=== PATIENT | female | born 1990 | race Caucasian/White ===

== ENCOUNTER 2017-08-29 17:13 | Inpatient (IN) | payer OTHER ==
[~2017-08-29] VITALS: Ht 165.1 cm; Wt 59.1 kg
[2017-08-29] MEDS ORDERED: SODIUM CHLORIDE FLUSH 10ML SYR IVF ONE (18:00)
[2017-08-29 18:50] LABS: HEMATOCRIT 43.2 % (34.6-47.8); HEMOGLOBIN 14.7 g/dL (11.7-16.4); WHITE BLOOD COUNT 8.8 x10^3/uL (3.4-10)
[2017-08-29 19:00] LABS: ASPARTATE AMINO TRANSFERASE 12 U/L (15-37); BLOOD UREA NITROGEN 11 mg/dL (7-18)
[2017-08-29] MEDS ORDERED: LIDOCAINE 1%, 10ML INFIL ONE (19:00)
[2017-08-29 19:44] LABS: GLUCOSE, CSF 53 mg/dL (40-80)
[2017-08-29] MEDS ORDERED: ACETAMINOPHEN 325 MG TABLET ONE (22:07)
[2017-08-29] MEDS ORDERED: LORazepam 1MG TABLET ONE (22:08)
[2017-08-29] MEDS ORDERED: LORazepam 1MG TABLET PO ONE (22:30)
[2017-08-29] MEDS ORDERED: ACETAMINOPHEN 325 MG TABLET PO ONE (22:30)
[2017-08-29] MEDS ORDERED: ENALAPRILAT 1.25 MG/ML, 2ML IVPush PRN (23:00)
[2017-08-29] MEDS ORDERED: DOCUSATE 100 MG CAPSULE PO PRN (23:00)
[2017-08-30 09:59] VITALS: BP 111/70
[2017-08-30] MEDS: LORazepam 1MG TABLET PO PRN ×2 (11:05→21:44)
[2017-08-30] MEDS: ACETAMINOPHEN 325 MG TABLET PO PRN (11:05)
[2017-08-30] MEDS: GABAPENTIN 100 MG CAPSULE PO SCH ×3 (12:32→21:44)
[2017-08-30] MEDS: IMMUNE GLOBULIN IV SCH ×2 (13:51→14:47)
[2017-08-30] MEDS: DIPHENHYDRAMINE 50 MG/ML, 1ML IVPush PRN ×2 (14:05→14:46)
[2017-08-30 15:03] VITALS: BP 115/68
[2017-08-30 19:28] VITALS: BP 119/74
[2017-08-31 03:20] VITALS: BP 106/67
[2017-08-31] MEDS ORDERED: MAGNESIUM SULFATE PMX 2GM/50ML 50 ML IV ONE (04:00)
[2017-08-31 04:04] LABS: BLOOD UREA NITROGEN 10 mg/dL (7-18)
[2017-08-31 07:21] VITALS: BP 112/74
[2017-08-31] MEDS: GABAPENTIN 100 MG CAPSULE PO SCH ×3 (09:48→16:28)
[2017-08-31 12:12] LABS: RAPID PLASMA REAGIN Nonreactive (Nonreactive)
[2017-08-31 13:38] LABS: BLOOD UREA NITROGEN 8 mg/dL (7-18)
[2017-08-31 13:39] LABS: IS PT STATUS REG ER OR PRE ER? NO
[2017-08-31 14:00] VITALS: BP 121/83
[2017-08-31] MEDS: IMMUNE GLOBULIN IV SCH (15:03)
[2017-08-31] MEDS: LORazepam 1MG TABLET PO PRN (15:03)
[2017-08-31] MEDS: DIPHENHYDRAMINE 50 MG/ML, 1ML IVPush PRN (15:03)
[2017-08-31 15:48] LABS: ANA SCREEN POSITIVE (Negative)
[2017-08-31 16:58] LABS: IS PT STATUS REG ER OR PRE ER? NO
[2017-08-31] MEDS ORDERED: OMNIPAQUE 350 MG/ML, 100ML BOTTLE ONE (18:11)
[2017-08-31] MEDS: ENOXAPARIN 40 MG/0.4 ML SQ SCH (18:29)
[2017-08-31] MEDS: ASPIRIN 325 MG TABLET PO SCH (18:29)
[2017-08-31] MEDS: METOPROLOL TARTRATE 25 MG TABLET PO SCH (18:30)
[2017-08-31 19:16] VITALS: BP 107/67
[2017-08-31] MEDS: LORazepam 2 MG/ML, 1ML IVPush PRN (21:20)
[2017-08-31 21:39] LABS: IS PT STATUS REG ER OR PRE ER? NO
[2017-09-01 01:40] VITALS: BP 109/68
[2017-09-01 06:09] LABS: BLOOD UREA NITROGEN 12 mg/dL (7-18)
[2017-09-01] MEDS: ASPIRIN 325 MG TABLET PO SCH (06:16)
[2017-09-01] MEDS: METOPROLOL TARTRATE 25 MG TABLET PO SCH (06:16)
[2017-09-01 07:34] VITALS: BP 110/59
[2017-09-01] MEDS: GABAPENTIN 100 MG CAPSULE PO SCH ×3 (08:38→18:59)
[2017-09-01] MEDS: LORazepam 2 MG/ML, 1ML IVPush PRN ×2 (08:55→21:45)
[2017-09-01] MEDS: IMMUNE GLOBULIN IV SCH (12:03)
[2017-09-01] MEDS: DIPHENHYDRAMINE 50 MG/ML, 1ML IVPush PRN (12:06)
[2017-09-01 14:11] VITALS: BP 111/68
[2017-09-01] MEDS: ENOXAPARIN 40 MG/0.4 ML SQ SCH (17:53)
[2017-09-01] MEDS: METOPROLOL SUCCINATE 25 MG TAB.ER.24H PO SCH (17:58)
[2017-09-01 19:08] VITALS: BP 112/72
[2017-09-01] MEDS: ACETAMINOPHEN 325 MG TABLET PO PRN (21:45)
[2017-09-02 03:59] VITALS: BP 112/69
[2017-09-02] MEDS: ASPIRIN 325 MG TABLET PO SCH (05:28)
[2017-09-02 06:14] LABS: HEMATOCRIT 38.8 % (34.6-47.8); HEMOGLOBIN 13.4 g/dL (11.7-16.4); WHITE BLOOD COUNT 4.4 x10^3/uL (3.4-10)
[2017-09-02 06:23] LABS: BLOOD UREA NITROGEN 7 mg/dL (7-18)
[2017-09-02 07:15] VITALS: BP 112/68
[2017-09-02] MEDS: GABAPENTIN 100 MG CAPSULE PO SCH (09:00)
[2017-09-02] MEDS ORDERED: POTASSIUM CHLORIDE 20 MEQ TAB.ER.PRT PO ONE (10:30)
[2017-09-02] MEDS: LORazepam 2 MG/ML, 1ML IVPush PRN ×2 (10:58→21:42)
[2017-09-02] MEDS: ACETAMINOPHEN 325 MG TABLET PO PRN ×2 (10:58→21:41)
[2017-09-02] MEDS ORDERED: LORazepam 2 MG/ML, 1ML IVPush ONE (14:00)
[2017-09-02 14:07] LABS: CRYPTOCOCCUS ANTIGEN CSF Negative (Negative); MANDATED REFLEX TO CULTURE Not Indicated (.)
[2017-09-02] MEDS ORDERED: GADOBUTROL 7.5 MMOL/7.5 ML PFS ONE (15:37)
[2017-09-02] MEDS: IMMUNE GLOBULIN IV SCH (16:08)
[2017-09-02] MEDS: ENOXAPARIN 40 MG/0.4 ML SQ SCH (17:00)
[2017-09-02 18:10] VITALS: BP 110/74
[2017-09-02] MEDS: METOPROLOL SUCCINATE 25 MG TAB.ER.24H PO SCH (18:18)
[2017-09-02 19:01] VITALS: BP 115/75
[2017-09-03 03:49] VITALS: BP 100/60
[2017-09-03] MEDS: ASPIRIN 325 MG TABLET PO SCH (05:38)
[2017-09-03 06:10] LABS: BLOOD UREA NITROGEN 7 mg/dL (7-18)
[2017-09-03 08:05] VITALS: BP 113/70
[2017-09-03] MEDS: DIPHENHYDRAMINE 25 MG CAPSULE PO PRN (14:40)
[2017-09-03] MEDS: IMMUNE GLOBULIN IV SCH (15:00)
[2017-09-03 15:16] VITALS: BP 128/78
[2017-09-03] MEDS: ENOXAPARIN 40 MG/0.4 ML SQ SCH (17:00)
[2017-09-03] MEDS: METOPROLOL SUCCINATE 25 MG TAB.ER.24H PO SCH (18:01)
[2017-09-03] MEDS ORDERED: ENALAPRILAT 1.25 MG/ML, 2ML IVPush PRN (19:30)
[2017-09-03] MEDS ORDERED: DOCUSATE 100 MG CAPSULE PO PRN (19:30)
[2017-09-03 19:46] VITALS: BP 104/67
[2017-09-03] MEDS: LORazepam 1MG TABLET PO PRN (20:48)
[2017-09-04 02:53] VITALS: BP 101/68
[2017-09-04 08:30] VITALS: BP 116/79
[2017-09-04] MEDS: ASPIRIN 325 MG TABLET PO SCH (09:00)
[2017-09-04 14:08] LABS: ALBUMIN CSF 40 mg/dL (11-48); ALBUMIN SERUM 4.6 g/dL (3.5-5.5); CSF IGG INDEX 0.5 (0.0-0.7); CSF/SERUM ALBUMIN INDEX 9 (0-8); IGG SERUM 859 mg/dL (700-1600); IGG SYNTHESIS RATE CSF -2.7 mg/day (-9.9 TO +3.3); IGG/ALBUMIN RATIO CSF 0.09 (0.00-0.25)
[2017-09-04] MEDS ORDERED: IMMUNE GLOBULIN IV ONE (14:30)
[2017-09-04 14:52] VITALS: BP 110/73
[2017-09-04] MEDS: DIPHENHYDRAMINE 25 MG CAPSULE PO PRN (14:54)
[2017-09-04] MEDS: ENOXAPARIN 40 MG/0.4 ML SQ SCH (17:00)
[2017-09-04] MEDS ORDERED: METO25TA91 PO (17:26)
[2017-09-04] MEDS: METOPROLOL SUCCINATE 25 MG TAB.ER.24H PO SCH (17:38)
[2017-09-05 13:07] LABS: COMPLEMENT C4 20 mg/dL (14-44); MITOCHONDRIAL (M2) AB 24.7 Units (0.0-20.0); PARIETAL CELL AB 15.9 Units (0.0-20.0); STRIATION AB Negative (Neg:<1:40); THYROID PEROXIDASE (TPO) AB 44 IU/mL (0-34)
[2017-09-05 13:32] LABS: RHEUMATOID FACTOR SCREEN NEGATIVE (NEGATIVE)
== END 2017-09-04 18:45 | disposition home or self-care (01) | DRG 95 ==
LOC: ED 18:28 → EDIP 21:02 → 4EST 08-30 09:17 → 4WST 08-30 21:08
PROVIDERS: ADMIT Family Medicine; ATTEND Family Medicine
PROC: 009U3ZX Drainage of Spinal Canal, Percutaneous Approach, Diagnostic (ICD-10-PCS; principal; 2017-08-29)
PROC: 30233S1 Transfusion of Nonautologous Globulin into Peripheral Vein, Percutaneous Approach (ICD-10-PCS; 2017-08-30)
PROC: 02HV33Z Insertion of Infusion Device into Superior Vena Cava, Percutaneous Approach (ICD-10-PCS; 2017-08-30)
PROC: B548ZZA Ultrasonography of Superior Vena Cava, Guidance (ICD-10-PCS; 2017-08-30)
PROC: B5181ZA Fluoroscopy of Superior Vena Cava using Low Osmolar Contrast, Guidance (ICD-10-PCS; 2017-08-30)
DX: G61.0 Guillain-Barre syndrome (principal); G61.81 Chronic inflammatory demyelinating polyneuritis; I47.2 Ventricular tachycardia; I48.92 Unspecified atrial flutter; E87.6 Hypokalemia; G90.1 Familial dysautonomia [Riley-Day]; G97.1 Other reaction to spinal and lumbar puncture; Y84.4 Aspiration of fluid as the cause of abnormal reaction of the patient, or of later complication, without mention of misadventure at the time of the procedure; R07.89 Other chest pain; Z82.3 Family history of stroke; Z82.49 Family history of ischemic heart disease and other diseases of the circulatory system; Y92.89 Other specified places as the place of occurrence of the external cause; Z90.89 Acquired absence of other organs; Z83.3 Family history of diabetes mellitus; Z87.891 Personal history of nicotine dependence
CPT/HCPCS: 36415; 36569; 62270; 70553; 71010; 71275; 76937; 77001; 80048; 80053; 81003; 82040; 82042; 82164; 82550; 82784; 82945; 83516; 83520; 83735; 83873; 83880; 84157; 84443; 84484; 84703; 85025; 85598; 85610; 85613; 85651; 85670; 85730; 85732; 86038; 86039; 86140; 86146; 86147; 86160; 86225; 86235; 86255; 86256; 86376; 86430; 86431; 86592; 86645; 86695; 86696; 86762; 86777; 86778; 87070; 87075; 87102; 87205; 87252; 87899; 88108; 89051; 93005; 93306; A9585; J1459; J1650; Q9967; C1751; J1200; J2060; J3475; Q0163

== ENCOUNTER 2018-06-05 21:11 | Emergency (ER) | payer OTHER ==
[~2018-06-05] VITALS: Ht 165.1 cm; Wt 60.5 kg
[~2018-06-05 21:11] MED LIST: METO25TA91 PO
[2018-06-05 22:17] VITALS: BP 142/76
[2018-06-05] MEDS ORDERED: DIAZEPAM 5 MG TABLET ONE (22:25)
[2018-06-05] MEDS ORDERED: DIAZEPAM 5 MG TABLET PO ONE (22:30)
[2018-06-05 22:36] LABS: BASOPHILS # (AUTO) 0.07 x10^3/uL (0-0.1); BASOPHILS % (AUTO) 1 % (0-1); EOSINOPHILS # (AUTO) 0.27 x10^3/uL (0-0.4); EOSINOPHILS % (AUTO) 4 % (1-7); LYMPHOCYTES # (AUTO) 2.57 x10^3/uL (1-3.4); LYMPHOCYTES % (AUTO) 39 % (22-44); MD NO; MEAN CORPUSCULAR HEMOGLOBIN 32.6 pg (27.0-34.8); MEAN PLATELET VOLUME 8.1 fL (7.4-10.4); MONOCYTES # (AUTO) 0.46 x10^3/uL (0.2-0.8); MONOCYTES % (AUTO) 7 % (2-9); NEUTROPHILS # (AUTO) 3.18 x10^3/uL (1.8-6.8); NEUTROPHILS % (AUTO) 49 % (42-75); PLATELET COUNT 237 x10^3/uL (130-400); RED BLOOD COUNT 4.18 x10^6/uL (3.82-5.3); RED CELL DISTRIBUTION WIDTH 12.9 % (9.6-15.2)
[2018-06-05 22:49] LABS: ALBUMIN 4.1 g/dL (3.4-5.0); ANION GAP 7 mmol/L (5-15); CALCIUM 9.4 mg/dL (8.5-10.1); CHLORIDE 108 mmol/L (98-107); CREATININE 0.66 mg/dL (0.55-1.02)
[2018-06-05 22:53] LABS: FREE T4 (FREE THYROXINE) 1.26 ng/dL (0.76-1.46); TROPONIN I < 0.015 ng/mL (0.000-0.045)
== END 2018-06-06 00:04 | disposition home or self-care (01) ==
LOC: ED 23:30
DX: R07.89 Other chest pain (principal)
CPT/HCPCS: 36415; 71045; 80048; 82040; 83735; 84439; 84443; 84484; 85025; 85379; 93005; 99285

== ENCOUNTER → 2019-02-20 | Outpatient (CLI) | payer OTHER | END | disposition home or self-care (01) | LOC: CFH 10:38 | PROVIDERS: ATTEND Nurse Practitioner Family | DX: I47.2 Ventricular tachycardia (principal) | CPT/HCPCS: 93306 ==

== ENCOUNTER 2019-04-04 10:53 | Outpatient (CLI) | payer OTHER ==
[~2019-04-04] VITALS: Ht 165.1 cm; Wt 70.4 kg
[2019-04-04 11:01] VITALS: BP 152/76
== END 2019-04-04 12:35 | disposition home or self-care (01) ==
LOC: LDOP 10:53
PROVIDERS: ATTEND Obstetrics & Gynecology Maternal & Fetal Medicine
DX: O42.913 Preterm premature rupture of membranes, unspecified as to length of time between rupture and onset of labor, third trimester (principal); Z3A.38 38 weeks gestation of pregnancy
CPT/HCPCS: 59025; 84112; 99211; G0463

== ENCOUNTER 2019-04-06 05:23 | Inpatient (IN) | payer OTHER ==
[~2019-04-06] VITALS: Ht 165.1 cm; Wt 70.0 kg
[2019-04-06] MEDS ORDERED: D5%-LACTATED RINGERS 1,000 ML IV SCH (05:46)
[2019-04-06] MEDS ORDERED: OXYTOCIN 30U/ 0.9% NaCL 500ML 500 ML IV ONE (05:46)
[2019-04-06] MEDS ORDERED: NEWBORN KIT ONE (05:52)
[2019-04-06] MEDS ORDERED: MISOPROSTOL 25 MCG TABLET ONE ×2 (05:58→08:56)
[2019-04-06] MEDS ORDERED: LIDOCAINE 1%, 20ML ONE (05:58)
[2019-04-06] MEDS ORDERED: MISOPROSTOL 200 MCG TABLET ONE (05:58)
[2019-04-06] MEDS ORDERED: OXYTOCIN 30U/ 0.9% NaCL 500ML 500 ML ONE (05:58)
[2019-04-06] MEDS ORDERED: FENTANYL PF 100 MCG/2ML IVPush PRN (06:00)
[2019-04-06] MEDS ORDERED: TERBUTALINE 1 MG/ML, 1ML IVPush PRN (06:00)
[2019-04-06] MEDS ORDERED: PENICILLIN GK 5,000,000 UNITS in DEXTROSE 5% 100 ML IVPB ONE (06:00)
[2019-04-06] MEDS ORDERED: CALCIUM CARBONATE 500 MG TAB.CHEW PO PRN (06:00)
[2019-04-06] MEDS ORDERED: ONDANSETRON 2MG/ML, 2ML IVPush PRN (06:00)
[2019-04-06] MEDS ORDERED: FENTANYL PF 100 MCG/2ML IV PRN (06:00)
[2019-04-06] MEDS: MISOPROSTOL 25 MCG TABLET VG PRN ×2 (06:15→08:58)
[2019-04-06] MEDS: LACTATED RINGERS 1,000 ML IV SCH ×5 (06:18→20:55)
[2019-04-06 06:20] VITALS: BP 134/81
[2019-04-06] MEDS: PLEASE ENTER HEIGHT AND WEIGHT MC SCH ×2 (06:30→14:30)
[2019-04-06 06:31] LABS: BASOPHILS # (AUTO) 0.06 x10^3/uL (0-0.1); BASOPHILS % (AUTO) 1 % (0-1); EOSINOPHILS # (AUTO) 0.15 x10^3/uL (0-0.4); EOSINOPHILS % (AUTO) 2 % (1-7); LYMPHOCYTES # (AUTO) 1.98 x10^3/uL (1-3.4); LYMPHOCYTES % (AUTO) 22 % (22-44); MD NO; MEAN CORPUSCULAR HEMOGLOBIN 33.2 pg (27.0-34.8); MEAN CORPUSCULAR HGB CONC 33.2 g/dL (32.4-35.8); MEAN PLATELET VOLUME 7.5 fL (7.4-10.4); MONOCYTES # (AUTO) 0.58 x10^3/uL (0.2-0.8); MONOCYTES % (AUTO) 6 % (2-9); NEUTROPHILS # (AUTO) 6.41 x10^3/uL (1.8-6.8); NEUTROPHILS % (AUTO) 70 % (42-75); PLATELET COUNT 261 x10^3/uL (130-400); RED BLOOD COUNT 4.01 x10^6/uL (3.82-5.3); RED CELL DISTRIBUTION WIDTH 13.6 % (9.6-15.2)
[2019-04-06] MEDS: PENICILLIN GK 2,500,000 UNITS in DEXTROSE 5% 100 ML IV SCH ×3 (12:53→21:19)
[2019-04-06] MEDS ORDERED: OXYTOCIN 30U/ 0.9% NaCL 500ML 500 ML IV PRN (13:04)
[2019-04-06] MEDS ORDERED: BUPIVACAINE EPIDCONT SCH (13:40)
[2019-04-06] MEDS ORDERED: [UNRECOGNIZED DRUG - OTHER] EPIDCONT SCH (13:40)
[2019-04-06] MEDS ORDERED: FENTANYL EPIDCONT SCH (13:40)
[2019-04-06] MEDS ORDERED: FENTANYL PF 100 MCG/2ML ONE (18:22)
[2019-04-06] MEDS ORDERED: BUPIVACAINE 0.25% ONE ×2 (19:31→20:27)
[2019-04-07] MEDS: PENICILLIN GK 2,500,000 UNITS in DEXTROSE 5% 100 ML IV SCH (01:05)
[2019-04-07] MEDS ORDERED: MISOPROSTOL 200 MCG TABLET PR PRN (02:30)
[2019-04-07] MEDS ORDERED: ACETAMINOPHEN 325 MG TABLET PO PRN ×2 (02:30)
[2019-04-07] MEDS ORDERED: MEASLES,MUMPS&RUBELLA VACC/PF 0.5 ML SQ PRN (02:30)
[2019-04-07] MEDS ORDERED: RHOGAM FROM BLOOD BANK 1 NOTE EA IM/IV ONE (02:30)
[2019-04-07] MEDS ORDERED: ONDANSETRON 2MG/ML, 2ML IV PRN (02:30)
[2019-04-07] MEDS ORDERED: CALCIUM CARBONATE 500 MG TAB.CHEW PO PRN (02:30)
[2019-04-07] MEDS ORDERED: DIPH,PERTUSS(ACELL),TET VAC/PF NC IM-VACC PRN (02:30)
[2019-04-07] MEDS ORDERED: OXYcodone/APAP 5/325MG TABLET PO PRN ×2 (02:30)
[2019-04-07] MEDS ORDERED: MAGNESIUM HYDROXIDE 8%, 30ML UDC PO PRN (02:30)
[2019-04-07] MEDS ORDERED: IBUPROFEN 600 MG TABLET PO PRN (02:30)
[2019-04-07] MEDS ORDERED: OXYTOCIN 30U/ 0.9% NaCL 500ML 500 ML ONE (02:39)
[2019-04-07] MEDS: OXYTOCIN 30U/ 0.9% NaCL 500ML 500 ML IV SCH ×3 (02:41→22:10)
[2019-04-07] MEDS: LACTATED RINGERS 1,000 ML IV SCH (02:42)
[2019-04-07 05:00] VITALS: BP 109/72
[2019-04-07 07:50] VITALS: BP 111/71
[2019-04-07] MEDS: DOCUSATE 100 MG CAPSULE PO PRN ×2 (08:06→21:44)
[2019-04-07] MEDS ORDERED: PRENATAL VIT/IRON/FA 1 EACH TABLET PO SCH (09:00)
[2019-04-07 11:28] LABS: MEAN CORPUSCULAR HEMOGLOBIN 31.8 pg (27.0-34.8); MEAN CORPUSCULAR HGB CONC 32.1 g/dL (32.4-35.8); MEAN CORPUSCULAR VOLUME 99.3 fL (80-100); MEAN PLATELET VOLUME 7.4 fL (7.4-10.4); PLATELET COUNT 236 x10^3/uL (130-400); RED BLOOD COUNT 3.93 x10^6/uL (3.82-5.3); RED CELL DISTRIBUTION WIDTH 13.5 % (9.6-15.2)
[2019-04-07 12:00] VITALS: BP 117/77
[2019-04-07 12:17] LABS: BASOPHILS # (AUTO) 0.07 x10^3/uL (0-0.1); BASOPHILS % (AUTO) 0 % (0-1); EOSINOPHILS # (AUTO) 0.06 x10^3/uL (0-0.4); EOSINOPHILS % (AUTO) 0 % (1-7); LYMPHOCYTES # (AUTO) 1.11 x10^3/uL (1-3.4); LYMPHOCYTES % (AUTO) 7 % (22-44); MD SCAN; MONOCYTES # (AUTO) 0.72 x10^3/uL (0.2-0.8); MONOCYTES % (AUTO) 5 % (2-9); NEUTROPHILS # (AUTO) 13.63 x10^3/uL (1.8-6.8); NEUTROPHILS % (AUTO) 87 % (42-75)
[2019-04-07 16:00] VITALS: BP 112/73
[2019-04-07 21:00] VITALS: BP 119/80
[2019-04-08 01:50] VITALS: BP 114/74
[2019-04-08 08:35] VITALS: BP 116/77
== END 2019-04-08 14:15 | disposition home or self-care (01) | DRG 807 ==
LOC: LDOP 05:23 → LDIP 05:47 → 2NW 04-07 04:34
PROVIDERS: ADMIT Obstetrics & Gynecology Maternal & Fetal Medicine; ATTEND Obstetrics & Gynecology Maternal & Fetal Medicine
PROC: 10E0XZZ Delivery of Products of Conception, External Approach (ICD-10-PCS; principal; 2019-04-07)
PROC: 0KQM0ZZ Repair Perineum Muscle, Open Approach (ICD-10-PCS; 2019-04-07)
PROC: 10H07YZ Insertion of Other Device into Products of Conception, Via Natural or Artificial Opening (ICD-10-PCS; 2019-04-07)
PROC: 3E0R3BZ Introduction of Anesthetic Agent into Spinal Canal, Percutaneous Approach (ICD-10-PCS; 2019-04-07)
PROC: 00HU33Z Insertion of Infusion Device into Spinal Canal, Percutaneous Approach (ICD-10-PCS; 2019-04-07)
DX: O42.92 Full-term premature rupture of membranes, unspecified as to length of time between rupture and onset of labor (principal); Z37.0 Single live birth; O69.81X0 Labor and delivery complicated by cord around neck, without compression, not applicable or unspecified; O99.824 Streptococcus B carrier state complicating childbirth; O70.1 Second degree perineal laceration during delivery; O76 Abnormality in fetal heart rate and rhythm complicating labor and delivery; Z3A.39 39 weeks gestation of pregnancy
CPT/HCPCS: 36415; 82803; 85025; 86850; 86900; G0378; J2540; J3010; J2590; J7120